=== PATIENT | female | born 1970 | race Caucasian/White ===

== ENCOUNTER 2016-10-11 11:57 | Day surgery (SDC) | payer MEDICARE, MEDICAID ==
[~2016-10-11] VITALS: Ht 170.2 cm; Wt 71.0 kg
[2016-10-11] MEDS ORDERED: SODIUM CHLORIDE 0.9% 1,000 ML IV SCH (12:21)
[2016-10-11] MEDS ORDERED: LIDOCAINE 1%, 2ML SQ PRN (12:30)
[2016-10-11 12:34] VITALS: BP 161/82
[2016-10-11] MEDS ORDERED: LIDOCAINE 1%, 2ML ONE (12:36)
[2016-10-11] MEDS ORDERED: CARV-39 PO (12:42)
[2016-10-11] MEDS ORDERED: LISI-167 PO (12:42)
[2016-10-11] MEDS ORDERED: HYDR-3343 PO (12:42)
[2016-10-11] MEDS ORDERED: LEVO50TA5 PO (12:42)
[2016-10-11] MEDS ORDERED: ONDA-39 PO (12:42)
[2016-10-11] MEDS ORDERED: SERT50TA5 PO (12:42)
[2016-10-11] MEDS ORDERED: DIPH1TAB PO (12:42)
[2016-10-11] MEDS ORDERED: ATOR10TA PO (12:42)
[2016-10-11] MEDS ORDERED: OMEP-110 PO (12:42)
[2016-10-11] MEDS ORDERED: FOLI-17 PO (12:42)
[2016-10-11] MEDS ORDERED: AMLO10TA2 PO (12:42)
[2016-10-11] MEDS ORDERED: SEVE800T8 PO (12:42)
[2016-10-11] MEDS ORDERED: GABA100C PO (12:42)
[2016-10-11] MEDS ORDERED: BUDE10.2 INH (12:43)
[2016-10-11 13:05] VITALS: BP 161/82
[2016-10-11] MEDS ORDERED: FENTANYL PF 250 MCG/5ML ONE (13:17)
[2016-10-11] MEDS ORDERED: MIDAZOLAM 1 MG/ML, 2ML ONE (13:17)
[2016-10-11] MEDS ORDERED: HEPARIN 1,000 UNITS/ML, 10ML ONE (13:45)
[2016-10-11] MEDS ORDERED: THROMBIN 5,000 UNIT VIAL TP ONE (13:45)
[2016-10-11] MEDS ORDERED: BUPIVACAINE/PF 0.5% ONE (13:45)
[2016-10-11] MEDS ORDERED: PROTAMINE SULFATE 10 MG/ML, 5ML ONE (13:45)
[2016-10-11] MEDS ORDERED: INSULIN SINGLE DOSE, ER SQ-INSULIN ONE (14:08)
[2016-10-11] MEDS ORDERED: ROCURONIUM 10 MG/ML ONE (14:26)
[2016-10-11] MEDS ORDERED: ONDANSETRON 2MG/ML, 2ML ONE (14:26)
[2016-10-11] MEDS ORDERED: CEFAZOLIN 1,000 MG ONE (14:26)
[2016-10-11] MEDS ORDERED: NEOSTIGMINE 1 MG/ML, 10ML ONE (14:26)
[2016-10-11] MEDS ORDERED: PROPOFOL 10 MG/ML, 20ML ONE (14:26)
[2016-10-11] MEDS ORDERED: GLYCOPYRROLATE 0.2MG/1ML ONE (14:26)
[2016-10-11] MEDS ORDERED: INSULIN REGULAR 100 UNITS/ML, 3ML VIAL SQ-INSULIN ONE (14:30)
[2016-10-11] MEDS ORDERED: LABETALOL 5MG/ML, 20ML IV PRN (14:30)
[2016-10-11] MEDS ORDERED: ONDANSETRON 2MG/ML, 2ML IVPush PRN (14:30)
[2016-10-11] MEDS ORDERED: OXYcodone 5 MG/5 ML ORAL.SOL UDC PO PRN (14:30)
[2016-10-11] MEDS ORDERED: FENTANYL PF 100 MCG/2ML IV PRN (14:30)
[2016-10-11] MEDS ORDERED: hydrALAzine 20 MG/ML, 1ML IV PRN (14:30)
[2016-10-11] MEDS ORDERED: HYDROmorphone 1 MG/ML, 1ML IV PRN (14:30)
[2016-10-11] MEDS ORDERED: PROMETHAZINE 25 MG/ML, 1ML IV PRN (14:30)
[2016-10-11] MEDS ORDERED: OXYcodone 5 MG/5 ML ORAL.SOL UDC ONE (16:24)
[2016-10-11] MEDS ORDERED: PHARMACY INSTRUCTION MC PRN (17:00)
[2016-10-11] MEDS ORDERED: HEPARIN 1,000 UNITS/ML, 1ML IV PRN (17:30)
== END 2016-10-11 18:35 ==
LOC: OUT 11:57
PROVIDERS: ATTEND Surgery
DX: E11.22 Type 2 diabetes mellitus with diabetic chronic kidney disease (principal); I12.0 Hypertensive chronic kidney disease with stage 5 chronic kidney disease or end stage renal disease; E03.9 Hypothyroidism, unspecified; K21.9 Gastro-esophageal reflux disease without esophagitis
CPT/HCPCS: 36415; 36821; 82962; 93005; J1644; J2250; J2720; J3010; J3490; 80047; J0690; J2405; J2704; J2710

== ENCOUNTER 2017-02-06 10:38 | Day surgery (SDC) | payer MEDICARE, MEDICAID ==
[~2017-02-06] VITALS: Ht 170.2 cm; Wt 70.7 kg
[~2017-02-06 10:38] MED LIST: AMLO10TA2 PO; ATOR10TA PO; BUDE10.2 INH; CARV-39 PO; DIPH1TAB PO; FOLI-17 PO; GABA100C PO; HEPARIN 1,000 UNITS/ML, 10ML ONE; HYDR-3343 PO; LEVO50TA5 PO; LISI-167 PO; OMEP-110 PO; ONDA4TAB12 PO; PROTAMINE SULFATE 10 MG/ML, 5ML ONE; SERT50TA5 PO; SEVE800T8 PO
[2017-02-06] MEDS ORDERED: LIDOCAINE 1%, 2ML SQ PRN (11:00)
[2017-02-06] MEDS ORDERED: SODIUM CHLORIDE 0.9% 1,000 ML IV SCH (11:00)
[2017-02-06 11:01] VITALS: BP 144/77
[2017-02-06] MEDS ORDERED: MIDAZOLAM 1 MG/ML, 2ML ONE (11:21)
[2017-02-06] MEDS ORDERED: FENTANYL PF 100 MCG/2ML ONE ×2 (11:21→13:04)
[2017-02-06] MEDS ORDERED: PROPOFOL 10 MG/ML, 20ML ONE (11:22)
[2017-02-06] MEDS ORDERED: PLEASE ENTER HEIGHT AND WEIGHT MC SCH (11:30)
[2017-02-06] MEDS ORDERED: CEFAZOLIN 1,000 MG ONE (11:52)
[2017-02-06] MEDS ORDERED: NEOSTIGMINE 1 MG/ML, 10ML ONE (11:52)
[2017-02-06] MEDS ORDERED: ONDANSETRON 2MG/ML, 2ML ONE (12:04)
[2017-02-06] MEDS ORDERED: DEXAMETHASONE 4 MG/ML, 1ML ONE (12:04)
[2017-02-06] MEDS ORDERED: HYDROmorphone 1 MG/ML, 1ML IV PRN (12:30)
[2017-02-06] MEDS ORDERED: PROMETHAZINE 25 MG/ML, 1ML IV PRN (12:30)
[2017-02-06] MEDS ORDERED: ONDANSETRON 2MG/ML, 2ML IVPush PRN (12:30)
[2017-02-06] MEDS ORDERED: hydrALAzine 20 MG/ML, 1ML IV PRN (12:30)
[2017-02-06] MEDS ORDERED: OXYcodone 5 MG/5 ML ORAL.SOL UDC PO PRN (12:30)
[2017-02-06] MEDS ORDERED: LABETALOL 5MG/ML, 20ML IV PRN (12:30)
[2017-02-06] MEDS ORDERED: ALBUTEROL/IPRATROPIUM 2.5MG/0.5MG, 3 ML NPPB PRN (12:30)
[2017-02-06] MEDS ORDERED: MEPERIDINE/PF 25MG/0.5ML IVPush PRN (12:30)
[2017-02-06] MEDS ORDERED: OXYcodone 5 MG/5 ML ORAL.SOL UDC ONE (13:04)
[2017-02-06] MEDS: FENTANYL PF 100 MCG/2ML IV PRN ×2 (13:09→13:17)
[2017-02-06] MEDS ORDERED: hydrALAzine 20 MG/ML, 1ML ONE (13:25)
[2017-02-06] MEDS ORDERED: HEPARIN 1,000 UNITS/ML, 10ML DIALYCATH STA (13:37)
== END 2017-02-06 16:00 ==
LOC: OUT 10:38
PROVIDERS: ATTEND Surgery Vascular Surgery
DX: T82.590A Other mechanical complication of surgically created arteriovenous fistula, initial encounter (principal); E11.22 Type 2 diabetes mellitus with diabetic chronic kidney disease; I12.0 Hypertensive chronic kidney disease with stage 5 chronic kidney disease or end stage renal disease; N18.6 End stage renal disease; K21.9 Gastro-esophageal reflux disease without esophagitis; Y83.8 Other surgical procedures as the cause of abnormal reaction of the patient, or of later complication, without mention of misadventure at the time of the procedure; Y92.89 Other specified places as the place of occurrence of the external cause; Z86.14 Personal history of Methicillin resistant Staphylococcus aureus infection
CPT/HCPCS: 36415; 36819; 80047; 82962; J0360; J0690; J1100; J1644; J2250; J2405; J2704; J2710; J3010; J2720